=== PATIENT | male | born 1950 | race Caucasian/White ===

== ENCOUNTER 2023-05-12 12:22 | Emergency (ER) | payer MEDICARE, OTHER ==
[~2023-05-12] VITALS: Ht 185.4 cm; Wt 97.5 kg
[2023-05-12] MEDS ORDERED: METOPROLOL SUCC50 M1 PO (13:12)
[2023-05-12] MEDS ORDERED: CLOPIDOGREL75 MG PO (13:13)
[2023-05-12] MEDS ORDERED: ATORVASTATIN CA40 M1 PO (13:13)
[2023-05-12] MEDS ORDERED: LISINOPRIL2.5 MG PO (13:14)
[2023-05-12] MEDS ORDERED: IMDUR SA30 MG PO (13:14)
[2023-05-12] MEDS ORDERED: ASPIRIN ADULT L81 M1 PO (13:15)
== END 2023-05-12 15:25 | disposition home or self-care (01) ==
LOC: ED 12:22
DX: S01.01XA Laceration without foreign body of scalp, initial encounter (principal); S51.012A Laceration without foreign body of left elbow, initial encounter; Z91.048 Other nonmedicinal substance allergy status; Z88.1 Allergy status to other antibiotic agents; Z79.899 Other long term (current) drug therapy; Z79.82 Long term (current) use of aspirin; W22.8XXA Striking against or struck by other objects, initial encounter; Y93.01 Activity, walking, marching and hiking; Y92.89 Other specified places as the place of occurrence of the external cause; Y99.8 Other external cause status